=== PATIENT | male | born 1985 | race Caucasian/White ===

== ENCOUNTER 2018-07-23 21:55 | Emergency (ER) | payer OTHER ==
[2018-07-23 22:01] VITALS: BP 167/99; PULSE 87; RESP 18; TEMP 98.6
--- NOTE | 2018-07-23 22:05 | ED ---
Back Pain HPI - General Chief Complaint: Back Pain/Injury Stated Complaint: Back,Shoulder pain Time Seen by Provider: 07/23/18 22:02 Source: patient Limitations: no limitations - History of Present Illness Initial Comments: Luis is a 32-year-old gentleman who presents the emergency department today for second opinion of the evaluation of his back pain and sinusitis. Patient reports that since approximately February he's been experiencing upper back pain which is worse with movement of his left arm. Patient doesn't recall any traumatic event or inciting event that caused the pain. He has seen his primary care physician for this he's been referred to a chiropractor. He reports he's been seeing a chiropractor weekly and he does have some mild improvement in his symptoms after treatment from the chiropractor however they continue to persist. Patient reports that the pain is like an aching in his shoulder this worse with movement. Patient has not tried any medications. He is never seen physical therapy. He did follow-up and Dr. Fang's office but reports that they had a difference of opinion he is not welcome back there. Patient also states that he has been experiencing nasal congestion and noted some dried blood in his nose intermittently for a few months. He does report that he discuss this with his primary care physician in February was prescribed Claritin which she reports he took for approximately 2-3 weeks but that stopped taking. He reports that he used to be a habitual marijuana smoker but was worried this was concerning to his symptoms so stopped smoking marijuana 2 weeks ago. Patient reports that he's never had a nosebleed but he notices some dry blood in his nose in the mornings when he wakes and he feels very congested at that time. The patient reports the symptoms have all been persistent since approximately February she has seen his primary care physician, he scheduled to see his primary care physician again next week and would like to discuss the possibility of an MRI with her. However he reports he just bothered by the symptoms are he came in the ER [facility] for a second opinion. - Related Data Previous Rx's Medication Instructions Recorded Fluticasone Nasal [place] [Flonase 1 spray EA NOSTRIL DAILY #1 bottle 07/23/18 Nasal [place]] Ibuprofen [Motrin] 600 mg PO Q6HR PRN #90 tab 07/23/18 Loratadine [Claritin] 10 mg PO DAILY #30 tab 07/23/18 Allergies Allergy/AdvReac Type Severity Reaction Status Date / Time No Known Allergies Allergy Verified 07/23/18 22:24 Review of Systems ROS Statement: Those systems with pertinent positive or pertinent negative responses have been documented in the HPI. ROS Other: All systems not noted in ROS Statement are negative. Past Medical History Past Medical History: GERD/Reflux Additional Past Medical History / Comment(s): pain to back and neck area, occasional headache, recently some memory issues and abdominal discomfort. 2009 with noted neck pain & recently May 2016 with new back pain. History of Any Multi-Drug Resistant Organisms: None Reported Past Surgical History: Orthopedic Surgery Additional Past Surgical History / Comment(s): lt thumb tendon repair. Past Anesthesia/Blood Transfusion Reactions: No Reported Reaction Past Psychological History: No Psychological Hx Reported Smoking Status: Former smoker Past Alcohol Use History: Occasional Past Drug Use History: Marijuana - Past Family History Mother Family Medical History: No Reported History General Exam - General Exam Comments Initial Comments: Physical Exam GENERAL: Patient is well-developed and well-nourished. Patient is nontoxic and well- hydrated and is in no distress. HENT: Normocephalic, Atraumatic. EYES: PERRL, EOMI PULMONARY: Unlabored respirations. No audible rales rhonchi or wheezing was noted. CARDIOVASCULAR: There is a regular rate and rhythm without any murmurs gallops or rubs. ABDOMEN: Soft and nontender with normal bowel sounds. SKIN: Skin is clear with no lesions or rashes and otherwise unremarkable. : Deferred NEUROLOGIC: Patient is alert and oriented x3. Moving all extremities spontaneously Normal gait No lower extremity weakness Normal strength and sensation to upper extremities MUSCULOSKELETAL: Normal extremities with adequate strength and full range of motion. No lower extremity swelling or edema. No calf tenderness. No midline spinal tenderness PSYCHIATRIC: Normal psychiatric evaluation. Limitations: no limitations Limitations: no limitations Course Vital Signs 07/23/18 21:56 Temperature 98.6 F Pulse Rate 87 Respiratory 18 Rate Blood Pressure 167/99 O2 Sat by Pulse 100 Oximetry Medical Decision Making - Medical Decision Making The patient was seen and evaluated history was obtained from the patient This is a 32-year-old male with history of chronic back pain is been seen for this intermittently for a number of years. Worsening pain over the past 3 months which does improve with chiropractic treatments. Patient presenting the ER today for second opinion of his back pain Back pain with no red flag symptoms, no focal neurologic deficits, no change in strength and sensation, no fever, no spinal tenderness, no change in bowel or bladder habits, no change in gait At this time I do not feel the patient will benefit from any further imaging. I advised the patient to follow up with his primary care physician as scheduled discussed the possibility of an MRI and continue chiropractic treatments if they improve his symptoms. I advised the patient that if he does not feel his chiropractic treatments effective enough he could try another chiropractor or a massage therapist. He can discuss with his primary care physician the possibility of physical therapy. Sinusitis and addition patient seems to be suffering from chronic sinusitis with nasal congestion and occasional dried blood in his nares. I discussed the need for humidifier in the home. Supportive care with topical saline gel, treatment of chronic sinusitis with Flonase and Claritin. These prescriptions are provided all questions pertaining care were answered patient was advised follow-up with his primary care physician as scheduled. Return parameters were discussed patient discharged home in stable condition Disposition Clinical Impression: Chronic sinusitis, Chronic back pain greater than 3 months duration Disposition: HOME SELF-CARE Instructions: Chronic Back Pain (ED) Prescriptions: Fluticasone Nasal [place] [Flonase Nasal [place]] 1 spray EA NOSTRIL DAILY #1 bottle Ibuprofen [Motrin] 600 mg PO Q6HR PRN #90 tab PRN Reason: Pain Loratadine [Claritin] 10 mg PO DAILY #30 tab Is patient prescribed a controlled substance at d/c from ED?: No Referrals: Ember Araya MD [Primary Care Provider] - 1-2 days Christi Fang DO [Doctor of Osteopathic Medicine] - 1-2 days
== END 2018-07-23 22:43 | disposition home or self-care (01) ==
LOC: EC 21:55
DX: G89.29 Other chronic pain (principal); M54.6 Pain in thoracic spine; J32.9 Chronic sinusitis, unspecified; M25.512 Pain in left shoulder; Z87.891 Personal history of nicotine dependence
CPT/HCPCS: 99283

== ENCOUNTER → 2018-07-29 | Outpatient (CLI) | payer OTHER ==
--- NOTE | 2018-07-29 14:54 | XR ---
Cervical spine HISTORY: Pain, neck strain 5 views of the cervical spine correlated prior exam 12/27/2009 There is a scoliotic curvature in the upper thoracic spine. No evident foraminal encroachment on obli que views. Cervical vertebral bodies show preserved height, alignment, and bone mineralization. Disc spaces mildly reduced at C2-3, C3-4. Prevertebral soft tissues are normal. Spondylosis present at C3- 4, C4-5. IMPRESSION: Degenerative disc disease, scoliosis. Cervical MRI may be of benefit.
--- NOTE | 2018-07-29 14:56 | XR ---
Thoracic spine HISTORY: Pain 3 views of the thoracic spine There is a spinal curvature the upper thoracic spine convex left centered at approximately T3. Thorac ic vertebral bodies show preserved height and bone mineralization. Mild multilevel spondylosis. Disc spaces maintained. IMPRESSION: Spinal curvature, mild thoracic spondylosis.
== END ==
LOC: RADXRMAIN 14:08
PROVIDERS: ATTEND Family Medicine
DX: M50.30 Other cervical disc degeneration, unspecified cervical region (principal); M41.82 Other forms of scoliosis, cervical region; M47.814 Spondylosis without myelopathy or radiculopathy, thoracic region; M41.84 Other forms of scoliosis, thoracic region
CPT/HCPCS: 72050; 72070

== ENCOUNTER → 2018-08-06 | Outpatient (CLI) | payer OTHER ==
--- NOTE | 2018-08-07 14:57 | MR ---
EXAMINATION TYPE: MR cervical spine wo con DATE OF EXAM: 08/06/2018 COMPARISON: X-ray 07/29/2018 HISTORY: Neck/mid back pain TECHNIQUE: T1 sagittal and coronal, T2 sagittal, and gradient echo axial views of the cervical spine are submitted. FINDINGS: The cranial cervical junction is preserved. There is no abnormal signal seen within the sp inal cord or paraspinal soft tissues. At C2-3 there is no disc herniation or canal stenosis. No foraminal encroachment. At C3-4 there is there is uncovertebral joint hypertrophy on the left. No foraminal encroachment or c anal stenosis. No focal herniation. At C4-5 there is mild uncovertebral joint particularly bilaterally. No disc herniation or canal steno sis. Neural foramina patent. At C5-6 there is mild disc desiccation. There is a right paracentral tiny disc protrusion with efface ment of thecal sac. No spinal cord contact. Neural foramina remain patent. At C6-7 there is no disc herniation or canal stenosis. No foraminal encroachment At C7-T1 there is no disc herniation or canal stenosis. No foraminal encroachment. IMPRESSION: 1. At C5-C6 there is a small right paracentral disc protrusion with mild effacement of thecal sac bu t no spinal cord contact or foraminal encroachment. 2. Multilevel uncovertebral joint hypertrophy with no significant foraminal encroachment. EXAMINATION TYPE: MR thoracic spine wo con DATE OF EXAM: 08/06/2018 COMPARISON: X-ray 07/29/2018 HISTORY: Neck/mid back pain Standard multiplanar, multisequence MRI departmental protocol Multiplanar, multisequence images of the thoracic spine were acquired. FINDINGS: Slight curvature of the spine noted. At T10-T11 there is an annular tear and right paracentral disc bulge. No spinal cord contact or osbaldo inal encroachment. At T9-T10 there is degenerative disc disease and right paracentral disc bulge.. No canal stenosis or foraminal encroachment. At T8-T9 there is a small focal central disc herniation which results in mild indentation of the ante rior margin the spinal cord. Degenerative disc disease seen. No foraminal encroachment. Remaining levels demonstrate no disc herniation, canal stenosis, or foraminal encroachment. No abnormal signal in spinal cord or paraspinal soft tissues. IMPRESSION: 1. Central disc small herniation with mild anterior impression mass effect upon the anterior margin t he spinal cord T8-T9. 2. Annular tear at T10-T11 right paracentral disc bulge. No spinal cord contact or foraminal encroach ment. 3. Right paracentral disc bulge T9-T10 no spinal cord contact or foraminal encroachment. 4. Multilevel mild degenerative disc disease.
== END | disposition home or self-care (01) ==
LOC: RADMRIMAIN 19:07
PROVIDERS: ATTEND Family Medicine
DX: M50.222 Other cervical disc displacement at C5-C6 level (principal); M51.24 Other intervertebral disc displacement, thoracic region; M53.80 Other specified dorsopathies, site unspecified; M51.34 Other intervertebral disc degeneration, thoracic region; S16.1XXA Strain of muscle, fascia and tendon at neck level, initial encounter
CPT/HCPCS: 72141; 72146

== ENCOUNTER → 2018-08-31 | Outpatient (CLI) | payer OTHER ==
--- NOTE | 2018-08-31 12:05 | US ---
EXAMINATION TYPE: US abdomen comp/pelvis limited DATE OF EXAM: 08/31/2018 COMPARISON: None CLINICAL HISTORY: 33-year-old male R10.9 Abd Pain, R39.11 Urinary Hesitation, N50.82. Difficult urina ting, cloudy, pain under scrotum. TECHNIQUE: Multiple sonographic images of the abdomen and bladder are obtained. FINDINGS: EXAM MEASUREMENTS: Liver Length: 17.4 cm Gallbladder Wall: 2.6 mm CBD: 6.6 mm Spleen: 10.3 cm Right Kidney: 10.4 x 4.8 x 4.1 cm Left Kidney: 10.3 x 4.4 x 5.6 cm Pancreas: wnl Liver: Borderline in size without focal lesion. Gallbladder: fold seen, no abnormal distention, wall thickening, pericholecystic fluid, or shadowing calculi. CBD: Borderline to mildly dilated. Spleen: wnl Right Kidney: wnl Left Kidney: wnl Upper IVC: wnl Abd Aorta: wnl Bladder: wnl Bilateral Jets Seen yes IMPRESSION: 1. Borderline liver size (17.4 cm). 2. Borderline to mildly dilated bile duct at 6.6 mm. Correlate with alkaline phosphatase and bilirubi n levels to exclude the possibility of early biliary obstruction. 3. No specific sonographic abnormality of the bladder.
--- NOTE | 2018-08-31 12:07 | US ---
EXAMINATION TYPE: US scrotum with doppler. TECHNIQUE: Grayscale and color Doppler Duplex imaging performed of the scrotum. DATE OF EXAM: 08/31/2018 COMPARISON: None CLINICAL HISTORY: 33-year-old male R10.9 Abd Pain, R39.11 Urinary Hesitation, N50.82. Urinary issues, patient states he has not been able to urinate normally for over 10 years, cannot get flow to start or stop properly FINDINGS: EXAM MEASUREMENTS: TESTICLES: Right Testicle: 4.4 x 3.2 x 2.5 cm Left Testicle: 4.2 x 3.2 x 2.4 cm EPIDIDYMIS HEAD: Right Epididymis: 0.9 cm Left Epididymis: 1.2 cm Doppler performed to assess for testicular vascularity; good bilateral color flow and waveforms are s een. There is no evidence of testicular torsion. Normal homogeneous appearance to both testicles wi thout hyperemia. Presence of hydroceles: Small bilaterally Presence of varicoceles: no Mild scrotal skin thickening at 4 mm on either side. IMPRESSION: 1. No sonographic evidence for testicular torsion or epididymoorchitis. 2. Small bilateral hydroceles. 3. Mild nonspecific scrotal skin thickening.
== END | disposition home or self-care (01) ==
LOC: RADUSWWP 08:01
PROVIDERS: ATTEND Family Medicine
DX: N43.3 Hydrocele, unspecified (principal); K83.8 Other specified diseases of biliary tract; R23.4 Changes in skin texture; N50.82 Scrotal pain; R10.9 Unspecified abdominal pain; R39.11 Hesitancy of micturition
CPT/HCPCS: 76700; 76857; 76870; 93975

== ENCOUNTER 2022-03-18 09:45 | Emergency (ER) | payer OTHER ==
[2022-03-18 10:13] VITALS: PULSE 72; RESP 18; TEMP 98.2
--- NOTE | 2022-03-18 12:39 | ED ---
General Adult HPI - General Chief complaint: ENT Stated complaint: uri,rash,confusion Time Seen by Provider: 03/18/22 11:45 Source: patient, RN notes reviewed Mode of arrival: ambulatory Limitations: no limitations - History of Present Illness Initial comments: This a 36-year-old male presents emergency Department with several complaints. Patient's primary complaint is left ear pain and drainage. Patient states he had an infection of the last few days along with left-sided dental pain. Patient states he has a list of complaints including increasing weakness, fatigue, bug bite to his right leg and which she thought it was related to a tick, intermittent bloating abdominal discomfort, back pain, cloudy urine. Patient has not seen his primary care physician, denies any current Medications denies drug use denies alcohol abuse. - Related Data Previous Rx's Medication Instructions Recorded Fluticasone Nasal [place] [Flonase 1 spray EA NOSTRIL DAILY #1 bottle 07/23/18 Nasal [place]] Ibuprofen [Motrin] 600 mg PO Q6HR PRN #90 tab 07/23/18 Loratadine [Claritin] 10 mg PO DAILY #30 tab 07/23/18 Amoxic-Pot Clav 875-125Mg 1 tab PO Q12HR #20 tab 03/18/22 [Augmentin 875-125] Allergies Allergy/AdvReac Type Severity Reaction Status Date / Time No Known Allergies Allergy Verified 03/18/22 10:13 Review of Systems ROS Statement: Those systems with pertinent positive or pertinent negative responses have been documented in the HPI. ROS Other: All systems not noted in ROS Statement are negative. Past Medical History Past Medical History: GERD/Reflux Additional Past Medical History / Comment(s): 2009 with noted neck pain & recently May 2016 with new back pain. History of Any Multi-Drug Resistant Organisms: None Reported Past Surgical History: Orthopedic Surgery Additional Past Surgical History / Comment(s): lt thumb tendon repair. Past Anesthesia/Blood Transfusion Reactions: No Reported Reaction Past Psychological History: No Psychological Hx Reported Smoking Status: Former smoker Past Alcohol Use History: Heavy Past Drug Use History: Marijuana - Past Family History Mother Family Medical History: No Reported History General Exam Limitations: no limitations General appearance: alert, in no apparent distress Head exam: Present: atraumatic, normocephalic, normal inspection Eye exam: Present: normal appearance, PERRL, EOMI. Absent: scleral icterus, conjunctival injection, periorbital swelling ENT exam: Present: mucous membranes moist. Absent: normal oropharynx (Dental Agnieszka left upper, mild erythema of the gumline), TM's normal bilaterally (Erythema of the left) Neck exam: Present: normal inspection, full ROM. Absent: tenderness, meningismus, lymphadenopathy Respiratory exam: Present: normal lung sounds bilaterally. Absent: respiratory distress, wheezes, rales, rhonchi, stridor Cardiovascular Exam: Present: regular rate, normal rhythm, normal heart sounds. Absent: systolic murmur, diastolic murmur, rubs, gallop, clicks GI/Abdominal exam: Present: soft, normal bowel sounds. Absent: distended, tenderness, guarding, rebound, rigid Course Vital Signs 03/18/22 10:06 Temperature 98.2 F Pulse Rate 72 Respiratory 18 Rate Blood Pressure 123/77 O2 Sat by Pulse 100 Oximetry Medical Decision Making - Medical Decision Making 36 show presented for multiple complaints. Patient did have basic labs which unremarkable patient is concerned about possible tick bite lying hydrated alert pending. Patient does have otitis media, dental infection will be given antibiotics advised that needs to have follow-up with PCP for chronic ongoing complaints. - Lab Data Result diagrams: 03/18/22 13:03 03/18/22 13:03 Lab Results 03/18/22 03/18/22 03/18/22 Range/Units 13:03 13:03 13:03 WBC 5.1 (3.8-10.6) k/uL RBC 4.55 (4.30-5.90) m/uL Hgb 14.5 (13.0-17.5) gm/dL Hct 44.9 (39.0-53.0) % MCV 98.7 (80.0-100.0) fL MCH 31.8 (25.0-35.0) pg MCHC 32.2 (31.0-37.0) g/dL RDW 11.6 (11.5-15.5) % Plt Count 195 (150-450) k/uL MPV 7.5 Neutrophils % 67 % Lymphocytes % 24 % Monocytes % 5 % Eosinophils % 2 % Basophils % 1 % Neutrophils # 3.4 (1.3-7.7) k/uL Lymphocytes # 1.2 (1.0-4.8) k/uL Monocytes # 0.3 (0-1.0) k/uL Eosinophils # 0.1 (0-0.7) k/uL Basophils # 0.0 (0-0.2) k/uL Sodium 139 (137-145) mmol/L Potassium 4.2 (3.5-5.1) mmol/L Chloride 103 (98-107) mmol/L Carbon Dioxide 28 (22-30) mmol/L Anion Gap 8 mmol/L BUN 14 (9-20) mg/dL Creatinine 0.80 (0.66-1.25) mg/dL Est GFR (CKD-EPI)AfAm >90 (>60 ml/min/1.73 sqM) Est GFR (CKD-EPI)NonAf >90 (>60 ml/min/1.73 sqM) Glucose 98 (74-99) mg/dL Calcium 9.0 (8.4-10.2) mg/dL Total Bilirubin 0.6 (0.2-1.3) mg/dL AST 22 (17-59) U/L ALT 21 (4-49) U/L Alkaline Phosphatase 66 (38-126) U/L Total Protein 6.8 (6.3-8.2) g/dL Albumin 4.5 (3.5-5.0) g/dL TSH 0.467 (0.465-4.680) mIU/L Urine Color Yellow Urine Appearance Turbid (Clear) Urine pH 8.0 (5.0-8.0) Ur Specific [place] 1.016 (1.001-1.035) Urine Protein Negative (Negative) Urine Glucose (UA) Negative (Negative) Urine Ketones Negative (Negative) Urine Blood Negative (Negative) Urine Nitrite Negative (Negative) Urine Bilirubin Negative (Negative) Urine Urobilinogen <2.0 (<2.0) mg/dL Ur Leukocyte Esterase Negative (Negative) Amorphous Sediment Moderate H (None) /hpf Disposition Clinical Impression: Otitis media, Dental infection, Fatigue Disposition: HOME SELF-CARE Condition: Stable Instructions (If sedation given, give patient instructions): Earache (ED) Additional Instructions: Please return to the Emergency Department if symptoms worsen or any other concerns. Prescriptions: Amoxic-Pot Clav 875-125Mg [Augmentin 875-125] 1 tab PO Q12HR #20 tab Is patient prescribed a controlled substance at d/c from ED?: No Referrals: Ember Araya MD [Primary Care Provider] - 1-2 days Time of Disposition: 14:03
[2022-03-18 13:16] LABS: Basophils % (A) 1 %; Eosinophils # (A) 0.1 k/uL (0-0.7); Eosinophils % (A) 2 %; HCT 44.9 % (39.0-53.0); HGB 14.5 gm/dL (13.0-17.5); Lymphocytes # (A) 1.2 k/uL (1.0-4.8); Lymphocytes % (A) 24 %; MCH 31.8 pg (25.0-35.0); MCHC 32.2 g/dL (31.0-37.0); MCV 98.7 fL (80.0-100.0); Mean Platelet Volume 7.5; Monocytes # (A) 0.3 k/uL (0-1.0); Monocytes % (A) 5 %; Neutrophils # (A) 3.4 k/uL (1.3-7.7); Neutrophils % (A) 67 %; Platelet Count 195 k/uL (150-450); RBC 4.55 m/uL (4.30-5.90); RDW 11.6 % (11.5-15.5); WBC 5.1 k/uL (3.8-10.6)
[2022-03-18 13:32] LABS: ALT 21 U/L (4-49); AST 22 U/L (17-59); African American GFR (CKD) >90 (>60 ml/min/1.73 sqM); Albumin 4.5 g/dL (3.5-5.0); Alkaline Phosphatase 66 U/L (38-126); Anion Gap 8 mmol/L; Blood Urea Nitrogen 14 mg/dL (9-20); Carbon Dioxide 28 mmol/L (22-30); Chloride 103 mmol/L (98-107); Glucose 98 mg/dL (74-99); Non-African American GFR(CKD) >90 (>60 ml/min/1.73 sqM); Potassium 4.2 mmol/L (3.5-5.1); Sodium 139 mmol/L (137-145); Total Bilirubin 0.6 mg/dL (0.2-1.3); Total Protein 6.8 g/dL (6.3-8.2)
[2022-03-18 13:37] LABS: Amorphous Sediment,Urine Moderate /hpf; Appearance,Urine Turbid (Clear); Bilirubin,Urine Negative (Negative); Blood,Urine Negative (Negative); Color,Urine Yellow; Glucose,Urine (UA) Negative (Negative); Ketones,Urine Negative (Negative); Leukocyte Esterase,Urine Negative (Negative); Nitrite,Urine Negative (Negative); Protein,Urine Negative (Negative); Specific Gravity,Urine 1.016 (1.001-1.035); Urobilinogen,Urine <2.0 mg/dL (<2.0)
[2022-03-18 14:31] VITALS: BP 124/81
== END 2022-03-18 14:30 | disposition home or self-care (01) ==
LOC: EC 09:45
DX: H66.92 Otitis media, unspecified, left ear (principal); K04.7 Periapical abscess without sinus; R53.83 Other fatigue; R41.0 Disorientation, unspecified; Z87.891 Personal history of nicotine dependence
CPT/HCPCS: 36415; 80053; 81001; 84443; 85025; 86618; 99284

== ENCOUNTER → 2022-04-09 | Outpatient (CLI) | payer OTHER ==
--- NOTE | 2022-04-09 16:38 | XR ---
Sinus HISTORY: Nasal congestion 4 views of the sinuses Paranasal sinuses are well aerated. There is no air-fluid level to suggest acute sinusitis. Orbits ar e intact. Bone mineralization is normal. No fracture or dislocation. IMPRESSION: Correlate for point tenderness to assess for sinusitis.
[2022-04-10 11:13] LABS: Cryptosporidium Antigen Negative (Negative)
== END | disposition home or self-care (01) ==
LOC: RADXRMAIN 15:51
PROVIDERS: ATTEND Family Medicine
DX: R09.81 Nasal congestion (principal)
CPT/HCPCS: 70220; 87045; 87046; 87328; 87329

== ENCOUNTER → 2022-05-02 | Outpatient (CLI) | payer OTHER ==
--- NOTE | 2022-05-02 09:00 | US ---
EXAMINATION TYPE: US abdomen complete DATE OF EXAM: 05/02/2022 COMPARISON: US 2019, CT 2011 CLINICAL HISTORY: R10.9 UNSPECIFIED ABDOMINAL PAIN. Occasional abdomen pain and bloating x couple yea rs TECHNIQUE: Multiple sonographic images of the abdomen are obtained. FINDINGS: EXAM MEASUREMENTS: Liver Length: 15.1 cm Gallbladder Wall: 0.2 cm CBD: 0.5 cm Spleen: 10.3 cm Right Kidney: 11.1 x 4.3 x 4.7 cm Left Kidney: 10.2 x 5.3 x 4.9 cm Pancreas: Normal appearance. Pancreatic duct in the body of pancreas somewhat prominent 0.3 cm. Body of the pancreas normal 0.2 cm. Liver: wnl Gallbladder: wnl Evidence for sonographic Hills's sign: no CBD: wnl Spleen: visualized portions wnl, limited by overlying bowel gas Right Kidney: wnl Left Kidney: wnl Upper IVC: wnl Abd Aorta: wnl IMPRESSION: 1. Minimal prominence of the pancreatic duct at the body of the pancreas. Consider follow-up with [facility] P.
== END | disposition home or self-care (01) ==
LOC: RADUSWWP 07:32
PROVIDERS: ATTEND Family Medicine
DX: R10.9 Unspecified abdominal pain (principal)
CPT/HCPCS: 76700

== ENCOUNTER → 2024-07-07 | Outpatient (CLI) | payer OTHER ==
--- NOTE | 2024-07-07 17:45 | XR ---
EXAMINATION TYPE: XR scapula LT DATE OF EXAM: 07/07/2024 4:37 PM COMPARISON: None CLINICAL INDICATION: Male, 38 years old with history of M54.6, G89.29, Z77.29; [facility], pain TECHNIQUE: XR scapula LT; 2 views FINDINGS: No evidence of acute osseous pathology, joint dislocation, or soft tissue swelling. The remaining po rtions of the visualized chest are unremarkable. IMPRESSION: No acute osseous pathology. [facility], , 07/07/2024 5:43 PM
--- NOTE | 2024-07-07 17:46 | XR ---
EXAMINATION TYPE: XR ribs LT w pa chest xray DATE OF EXAM: 07/07/2024 4:37 PM COMPARISON: None CLINICAL INDICATION: Male, 38 years old with history of M54.6, G89.29, Z77.29; [facility] TECHNIQUE: XR ribs LT w pa chest xray; Frontal and oblique views of the ribs with frontal chest radio graph. FINDINGS: The ribs have a normal appearance. No evidence of fracture. Overall, the lungs are clear. The cardiac silhouette is normal in size. The remaining osseous structures are intact. IMPRESSION: No acute osseous pathology. [facility], , 07/07/2024 5:44 PM
== END | disposition home or self-care (01) ==
LOC: RADXRMAIN 16:13
PROVIDERS: ATTEND Family Medicine
DX: M54.6 Pain in thoracic spine (principal); G89.29 Other chronic pain; Z77.29 Contact with and (suspected) exposure to other hazardous substances

== ENCOUNTER → 2024-07-08 | Outpatient (CLI) | payer MEDICARE, OTHER ==
--- NOTE | 2024-07-08 15:14 | CT ---
EXAMINATION TYPE: CT chest wo con DATE OF EXAM: 07/08/2024 COMPARISON: None CLINICAL INDICATION: Male, 38 years old with history of M54.6 PAIN IN THORACIC G89.29 CHRONIC PAIN Z7 7.29; PHH, left sided posterior chest pain TECHNIQUE: CT scan of the thorax is performed without IV contrast. CT DLP: [address] CTDI: mGy Automated exposure control for dose reduction was used. FINDINGS: There is a 6 mm subpleural parenchymal nodule left upper lobe. There is a 6 mm juxta pleural nodule o f the left lung fissure. There is no airspace consolidation. There is no abnormal interstitial density. There is no pleural effusion or pneumothorax. The heart, pulmonary vasculature, mediastinum and hilum are normal. Limited scanning through the upper abdomen reveals no gross abnormality. No focal osseous lesions are seen. IMPRESSION: 1. 2 sub-6 mm nodules in the left lung. Follow-up in 3 months is recommended to assess stability. 2. No acute cardiopulmonary disease. Follow-up recommendations for incidental pulmonary nodules are per [employer] or [employer]. [facility], , 07/08/2024 3:12 PM
== END | disposition home or self-care (01) ==
LOC: RADCTMAIN 14:30
PROVIDERS: ATTEND Family Medicine
DX: M54.6 Pain in thoracic spine (principal); R91.8 Other nonspecific abnormal finding of lung field; G89.29 Other chronic pain; Z77.29 Contact with and (suspected) exposure to other hazardous substances
CPT/HCPCS: 71250

== ENCOUNTER → 2024-07-23 | Outpatient (CLI) | payer MEDICARE ==
[2024-07-23 22:56] LABS: Basophils # (A) 0.05 X 10*3/uL (0.00-0.10); Basophils % (A) 0.8 %; Eosinophils # (A) 0.12 X 10*3/uL (0.04-0.35); HCT 44.2 % (39.6-50.0); HGB 14.6 g/dL (13.0-17.0); Lymphocytes # (A) 2.35 X 10*3/uL (0.90-5.00); Lymphocytes % (A) 39.2 %; MCH 31.7 pg (27.0-32.0); MCV 96.1 FL (80.0-97.0); Mean Platelet Volume 11.3 FL (9.5-12.2); Monocytes # (A) 0.54 X 10*3/uL (0.20-1.00); NRBC Per 100 WBC 0 X 10*3/uL (0.00-0.01); Neutrophils # (A) 2.92 X 10*3/uL (1.80-7.70); Neutrophils % (A) 48.8 %; Platelet Count 196 X 10*3/uL (140-440); RDW 12.6 % (11.5-14.5); WBC 5.99 X 10*3/uL (4.50-10.00)
[2024-07-23 23:12] LABS: INR 0.95 sec (0.93-1.11); Prothrombin Time 10.9 sec (9.9-11.9)
[2024-07-23 23:29] LABS: % Iron Saturation 38.06 (15.00-50.00); ALT 21 U/L (10-49); AST 19 U/L (14-35); Albumin 4.7 g/dL (3.8-4.9); Albumin/Globulin Ratio 2.04 Ratio (1.60-3.17); Alkaline Phosphatase 65 U/L (41-126); Blood Urea Nitrogen 14.9 mg/dL (9.0-27.0); Calcium 9.5 mg/dL (8.7-10.3); Carbon Dioxide 25.4 mmol/L (21.6-31.8); Chloride 102 mmol/L (96-109); Chol/HDL Ratio 3.18 Ratio; Globulin 2.3 g/dL (1.6-3.3); Glucose 106 mg/dL (70-110); Iron 137 UG/DL (65-175); LDL Cholesterol,Calculated 122.1 mg/dL (0.0-131.0); Potassium 4.3 mmol/L (3.5-5.5); Sodium 142 mmol/L (135-145); Total Bilirubin 0.7 mg/dL (0.3-1.2); Total Iron Binding Capacity 360 UG/DL (228-460); VLDL Calculation 13.64 mg/dL (5.00-40.00)
== END | disposition home or self-care (01) ==
LOC: LABWHC1 10:34
PROVIDERS: ATTEND Family Medicine
DX: R91.8 Other nonspecific abnormal finding of lung field (principal); R04.0 Epistaxis
CPT/HCPCS: 36415; 80053; 80061; 82306; 82607; 82728; 83036; 83540; 83550; 83735; 84443; 85025; 85610

== ENCOUNTER → 2024-08-01 | Outpatient (CLI) | payer MEDICARE ==
--- NOTE | 2024-08-01 18:06 | US ---
EXAMINATION TYPE: US mass soft tissue chest/back DATE OF EXAM: 08/01/2024 COMPARISON: NONE CLINICAL INDICATION: Male, 38 years old with history of R22.9 Soft tissue swelling; patient states pa in and swelling in left scapula area, he states when he lifts his left arm, he will cough and blood c omes out of left nostril, problem ongoing for a while now TECHNIQUE: Grayscale imaging of the area of patient's concern in the scapular area. FINDINGS: Soft tissue scan at area of concern near left scapula shows no abnormality to account for patients sy mptoms IMPRESSION: No organizing fluid collection or mass. [facility], , 08/01/2024 6:04 PM
== END | disposition home or self-care (01) ==
LOC: RADUSWWP 15:26
PROVIDERS: ATTEND Family Medicine
DX: R22.9 Localized swelling, mass and lump, unspecified (principal); R05.9 Cough, unspecified

== ENCOUNTER → 2024-10-06 | Outpatient (CLI) | payer MEDICARE ==
--- NOTE | 2024-10-06 15:23 | CT ---
EXAMINATION TYPE: CT chest wo con CT DLP: 276.80 mGycm, Automated exposure control for dose reduction was used. DATE OF EXAM: 10/06/2024 3:13 PM COMPARISON: CT chest 07/08/2024, ultrasound 08/01/2024. CLINICAL INDICATION:Male, 39 years old with history of R91.8 PULMONARY NODULES; PHH, Lung nodules, c/ o Lt back pain about 2" below LT scapula. TECHNIQUE: Multiple axial images were obtained through the chest without IV contrast. Lack of IV or o ral contrast limits evaluation of solid and hollow organ viscera. . Coronal and sagittal reformats re viewed. FINDINGS: LUNGS/ PLEURA: No pleural effusion, pneumothorax, or focal consolidation. Stable left lower lobe 6 m m nodule abutting the major fissure (series 4, image 39). Stable lingular subpleural 4.4 mm pulmonary nodule (series 4, image 53). No new or enlarging pulmonary nodules. AIRWAY: Patent and unremarkable.. HEART: Size within normal limits.No pericardial effusion. No significant coronary artery calcificatio ns. MEDIASTINUM: No gross evidence of adenopathy. VASCULATURE: No aortic aneurysm. MUSCULOSKELETAL: No acute osseous abnormalities. Small multilevel Schmorl's nodes. SOFT TISSUES/LYMPH NODES: Bilateral gynecomastia. LOWER NECK: No significant findings. UPPER ABDOMEN: No significant findings. IMPRESSION: 1. No CT evidence for acute thoracic process within limitations of a noncontrast exam. 2. Couple of stable left lung pulmonary nodules in the 07/08/2024. Follow-up CT chest in one year is recommended. 3. No CT evidence for abnormality within the region of the left scapula patient's region of concern. [facility], , 10/06/2024 3:21 PM
== END | disposition home or self-care (01) ==
LOC: RADCTMAIN 14:40
PROVIDERS: ATTEND Family Medicine
DX: R91.8 Other nonspecific abnormal finding of lung field (principal)
CPT/HCPCS: 71250

== ENCOUNTER → 2025-01-17 | Outpatient (CLI) | payer MEDICARE ==
--- NOTE | 2025-01-17 16:34 | CT ---
EXAMINATION TYPE: CT chest w con CT DLP: 503 mGycm, Automated exposure control for dose reduction was used. DATE OF EXAM: 01/17/2025 3:53 PM COMPARISON: CT chest 10/06/2024, 07/08/2024 CLINICAL INDICATION:Male, 39 years old with history of R91.8 OTHER NONSPECIFIC ABNORMAL FINDING OF GUERO NG F; PHH, RE EXAMIME PRE EXISTING LUNG NODULE SIZE TECHNIQUE: Multiple axial images were obtained through the chest following the administration of 100 cc of Isovue 300. . Coronal and sagittal reformats reviewed. FINDINGS: LUNGS/ PLEURA: No pleural effusion, pneumothorax, or focal consolidation. Stable left lower lobe 5 m m nodule abutting the major fissure (series 4, image 40). Stable lingular subpleural 4.6 mm pulmonary nodule (series 4, image 53). No new or enlarging pulmonary nodules. AIRWAY: Patent and unremarkable.. HEART: Size within normal limits.No pericardial effusion. No significant coronary artery calcificatio ns. MEDIASTINUM: No evidence of adenopathy. VASCULATURE: No aortic aneurysm. MUSCULOSKELETAL: No acute osseous abnormalities. Small multilevel Schmorl's nodes of the lower thorac ic spine. SOFT TISSUES/LYMPH NODES: Bilateral gynecomastia. LOWER NECK: No significant findings. UPPER ABDOMEN: No significant findings. IMPRESSION: 1. No CT evidence for acute thoracic process. 2. There are 2 stable left lung pulmonary nodules dating back to 07/08/2024. Consider benign due to s tability. No follow-up recommended. [facility], , 01/17/2025 4:32 PM
== END | disposition home or self-care (01) ==
LOC: RADCTMAIN 14:56
PROVIDERS: ATTEND Internal Medicine
DX: R91.8 Other nonspecific abnormal finding of lung field (principal)
CPT/HCPCS: 71260; Q9967